=== PATIENT | male | born 1970 | race Caucasian/White ===

== ENCOUNTER → 2019-05-06 | Outpatient (REF) | payer MEDICAID ==
[2019-05-07 11:54] LABS: HEMATOCRIT 46.1 % (42.0-52.0); HEMOGLOBIN 15.4 g/dl (13.5-17.5); MEAN CORPUSCULAR HEMOGLOBIN 29.9 pg (27.0-33.0); MEAN CORPUSCULAR HGB CONC 33.4 g/dl (32.0-36.5); MEAN CORPUSCULAR VOLUME 89.5 fl (80.0-96.0); PLATELET COUNT, AUTOMATED 216 10^3/uL (150-450); RED BLOOD COUNT 5.15 10^6/uL (4.30-6.10); WHITE BLOOD COUNT 8.4 10^3/uL (4.0-10.0)
[2019-05-07 12:01] LABS: ALBUMIN 4.2 GM/DL (3.2-5.2); BILIRUBIN,DIRECT 0.1 MG/DL (0.0-0.2); BILIRUBIN,TOTAL 0.4 MG/DL (0.2-1.0); TOTAL PROTEIN 7.9 GM/DL (6.4-8.2)
== END ==
LOC: M SFHCCLAY 15:44
PROVIDERS: ATTEND Family Medicine
DX: R53.83 Other fatigue (principal); Z87.19 Personal history of other diseases of the digestive system

== ENCOUNTER → 2019-05-12 | Outpatient (CLI) | payer MEDICAID ==
--- NOTE | 2019-05-13 08:13 | REP ---
STATED REASON FOR EXAM: Hilar adenopathy, however, there are no priors for comparison and I am confused as to why the presumptive diagnosis would be in fact hilar adenopathy without prior imaging examinations to indicate as such. If hilar adenopathy is of clinical concern then a contrast enhanced chest CT is recommended regardless of the plain film findings. If there are priors then they will be needed for comparison. Today's plain film examination shows streaky right suprahilar densities, however, I have no priors for comparison. Lung escamilla are otherwise clear and the heart is not enlarged. The pleural angles are sharp. The osseous structures are within normal limits. IMPRESSION: CT scan of the chest with contrast is recommended since hilar adenopathy is of clinical concern. A plain film examination of the chest cannot rule out hilar or in fact mediastinal adenopathy, it can only rule it in if present. Electronically Signed by Zane Larios DO 05/13/2019 11:20 A
== END ==
LOC: M CLY 13:35
PROVIDERS: ATTEND Family Medicine
DX: R59.0 Localized enlarged lymph nodes (principal)

== ENCOUNTER → 2019-08-27 | Outpatient (REF) | payer MEDICAID, BC ==
[2019-08-27 13:01] LABS: BASO # 0.1 10^3/uL (0.0-0.2); BASO % 0.7 % (0.0-1.0); EOS # 0.2 10^3/uL (0.0-0.5); HEMATOCRIT 48.4 % (42.0-52.0); HEMOGLOBIN 15.8 g/dl (13.5-17.5); LYMPH # 1.7 10^3/uL (1.5-5.0); LYMPH % 18.6 % (24.0-44.0); MEAN CORPUSCULAR HEMOGLOBIN 30.7 pg (27.0-33.0); MEAN CORPUSCULAR HGB CONC 32.6 g/dl (32.0-36.5); MONO # 0.7 10^3/uL (0.0-0.8); MONO % 7.3 % (0.0-5.0); NEUTROPHILS # 6.5 10^3/uL (1.5-8.5); PLATELET COUNT, AUTOMATED 196 10^3/uL (150-450); RED BLOOD COUNT 5.15 10^6/uL (4.30-6.10); WHITE BLOOD COUNT 9.2 10^3/uL (4.0-10.0)
[2019-08-27 13:22] LABS: ALBUMIN 4.1 GM/DL (3.2-5.2); ALT/SGPT 40 U/L (12-78); BILIRUBIN,TOTAL 0.4 MG/DL (0.2-1.0); BLOOD UREA NITROGEN 13 MG/DL (7-18); CALCIUM LEVEL 9.4 MG/DL (8.5-10.1); CARBON DIOXIDE LEVEL 29 MEQ/L (21-32); CHLORIDE LEVEL 103 MEQ/L (98-107); CREATININE FOR GFR 1.12 MG/DL (0.70-1.30); GLOMERULAR FILTRATION RATE > 60.0 (>60); GLUCOSE, FASTING 88 MG/DL (70-100); POTASSIUM SERUM 4.7 MEQ/L (3.5-5.1); RHEUMATOID FACTOR QUANT < 10.0 IU/ML (<15.0); SODIUM LEVEL 139 MEQ/L (136-145); TOTAL 25(OH) VITAMIN D 67.9 NG/ML (30.0-100.0); TOTAL PROTEIN 7.9 GM/DL (6.4-8.2)
[2019-08-27 14:00] LABS: ERYTHROCYTE SEDIMENTATION RATE 126 mm/hr (0-15)
[2019-08-28 17:13] LABS: ANTINUCLEAR ANTIBODIES DIRECT Negative (Negative)
== END ==
LOC: M LABNEURO 10:42
PROVIDERS: ATTEND Psychiatry & Neurology Neurology
DX: R51 Headache (principal)

== ENCOUNTER → 2019-10-19 | Outpatient (REF) | payer BC, MEDICAID ==
[2019-10-19 18:12] LABS: BASO # 0.1 10^3/uL (0.0-0.2); BASO % 0.7 % (0.0-1.0); EOS # 0.2 10^3/uL (0.0-0.5); EOS % 2.4 % (0.0-3.0); LYMPH # 1.8 10^3/uL (1.5-5.0); LYMPH % 23.7 % (24.0-44.0); MEAN CORPUSCULAR HEMOGLOBIN 30.4 pg (27.0-33.0); MEAN CORPUSCULAR HGB CONC 32.7 g/dl (32.0-36.5); MONO # 0.6 10^3/uL (0.0-0.8); MONO % 8.3 % (0.0-5.0); NEUTROPHILS # 4.9 10^3/uL (1.5-8.5); NEUTROPHILS % 64.4 % (36.0-66.0); PLATELET COUNT, AUTOMATED 232 10^3/uL (150-450); RED BLOOD COUNT 5.27 10^6/uL (4.30-6.10); WHITE BLOOD COUNT 7.6 10^3/uL (4.0-10.0)
[2019-10-19 19:24] LABS: ERYTHROCYTE SEDIMENTATION RATE 3 mm/hr (0-15)
== END ==
LOC: M LAB REF 17:10 → M LABNEURO 17:10
PROVIDERS: ATTEND Physician Assistant Medical
DX: R51 Headache (principal)

== ENCOUNTER 2022-12-03 09:54 | Inpatient (IN) | payer MEDICAID, OTHER ==
[~2022-12-03] VITALS: Ht 167.6 cm; Wt 66.0 kg
[2022-12-03 10:56] LABS: BASO # 0.1 10^3/uL (0.0-0.2); BASO % 0.7 % (0.0-1.0); EOS # 0.2 10^3/uL (0.0-0.5); EOS % 1.9 % (0.0-3.0); HEMATOCRIT 50.2 % (42.0-52.0); HEMOGLOBIN 16.2 g/dl (13.5-17.5); LYMPH # 1.9 10^3/uL (1.5-5.0); LYMPH % 20.7 % (24.0-44.0); MEAN CORPUSCULAR HEMOGLOBIN 30.1 pg (27.0-33.0); MEAN CORPUSCULAR HGB CONC 32.3 g/dl (32.0-36.5); MEAN CORPUSCULAR VOLUME 93.1 fl (80.0-96.0); MONO # 0.8 10^3/uL (0.0-0.8); MONO % 8.3 % (2.0-8.0); NEUTROPHILS # 6.1 10^3/uL (1.5-8.5); NEUTROPHILS % 67.8 % (36.0-66.0); PLATELET COUNT, AUTOMATED 259 10^3/uL (150-450); RED BLOOD COUNT 5.39 10^6/uL (4.30-6.10)
[2022-12-03 11:31] LABS: BLOOD UREA NITROGEN 18 MG/DL (9-23); CALCIUM LEVEL 9.3 MG/DL (8.5-10.1); CARBON DIOXIDE LEVEL 25 MMOL/L (20-31); CHLORIDE LEVEL 106 MMOL/L (98-107); CREATININE FOR GFR 1.05 MG/DL (0.70-1.30); GLOMERULAR FILTRATION RATE > 60.0 (>56); GLUCOSE, FASTING 89 MG/DL (60-100); POTASSIUM SERUM 4.6 MMOL/L (3.5-5.1); SODIUM LEVEL 140 MMOL/L (136-145)
[2022-12-03 12:02] LABS: ETHYL ALCOHOL (ETHANOL) < 0.003 % (0.000-0.010)
[2022-12-03 12:04] LABS: ACETAMINOPHEN LEVEL < 2.0 UG/ML (10.0-20.0); SALICYLATE LEVEL < 3.0 MG/DL (<30)
[2022-12-03 12:07] LABS: ALBUMIN 4.2 G/DL (3.2-5.2); ALKALINE PHOSPHATASE 92 U/L (46-116); ALT/SGPT 29 U/L (7.0-40); AST/SGOT 23 U/L (<34); BILIRUBIN,DIRECT 0.1 MG/DL (<0.4); BILIRUBIN,TOTAL 0.5 MG/DL (0.3-1.2); THYROID STIMULATING HORMONE 1.004 uIU/ML (0.55-4.78); TOTAL PROTEIN 7.5 G/DL (5.7-8.2)
[2022-12-03 12:18] LABS: BARBITURATES URINE NEGATIVE (NEGATIVE); COCAINE METABOLITE URINE NEGATIVE (NEGATIVE); METHADONE URINE NEGATIVE (NEGATIVE); OPIATES URINE NEGATIVE (NEGATIVE); PHENCYCLIDINE URINE NEGATIVE (NEGATIVE)
[2022-12-03 12:21] LABS: AMPHETAMINES LEVEL URINE POSITIVE (NEGATIVE); BENZODIAZEPINES URINE POSITIVE (NEGATIVE); CANNABINOIDS URINE POSITIVE (NEGATIVE)
[2022-12-03] MEDS ORDERED: OLANZapine ORAL DISINTEGRATING TAB 5MG PO ONE (15:35)
[2022-12-03] MEDS ORDERED: DULO1CAP6 PO (16:55)
[2022-12-03] MEDS ORDERED: BUPR150T12 PO (16:55)
[2022-12-04] MEDS ORDERED: MOM 30ML SUSPENSION UDC PO PRN (12:25)
[2022-12-04] MEDS ORDERED: LORazepam 1 MG TAB PO PRN (12:25)
[2022-12-04] MEDS ORDERED: MAALOX 30 ML SUSP *UDC PO PRN (12:25)
[2022-12-04] MEDS: DULoxetine 30MG CAPSULE (CYMBALTA) PO SCH (12:40)
[2022-12-04] MEDS: buPROPion **XL** TABLET 150MG (WELLBUTRIN XL) PO SCH (12:40)
[2022-12-04] MEDS: NICOTINE 21MG/24HR 1 EA TRANSDERMAL TD SCH (14:11)
[2022-12-04 16:55] VITALS: BP 124/74
[2022-12-04] MEDS ORDERED: HOME MED LIST COMPLETE! XX SCH (20:55)
[2022-12-05 06:24] VITALS: BP 109/57
[2022-12-05] MEDS: NICOTINE 21MG/24HR 1 EA TRANSDERMAL TD SCH (09:00)
[2022-12-05] MEDS: DULoxetine 30MG CAPSULE (CYMBALTA) PO SCH (12:38)
[2022-12-05] MEDS: buPROPion **XL** TABLET 150MG (WELLBUTRIN XL) PO SCH (12:38)
[2022-12-05 17:39] VITALS: BP 144/79
[2022-12-05] MEDS ORDERED: OLANZapine 2.5MG TABLET PO SCH (21:00)
[2022-12-05] MEDS: traZODone 50 MG TAB PO PRN (21:28)
[2022-12-05] MEDS: IBUPROFEN 400MG TAB PO PRN (21:31)
[2022-12-06 06:33] VITALS: BP 115/65
[2022-12-06] MEDS: buPROPion **XL** TABLET 150MG (WELLBUTRIN XL) PO SCH (09:13)
[2022-12-06] MEDS: DULoxetine 30MG CAPSULE (CYMBALTA) PO SCH (09:14)
[2022-12-06] MEDS: OLANZapine 5 MG TAB PO SCH ×2 (11:23→21:53)
[2022-12-06 16:16] VITALS: BP 124/59
[2022-12-06] MEDS: traZODone 50 MG TAB PO PRN (21:53)
[2022-12-07 06:34] VITALS: BP 126/74
[2022-12-07] MEDS: OLANZapine 5 MG TAB PO SCH ×2 (07:53→21:01)
[2022-12-07] MEDS: buPROPion **XL** TABLET 150MG (WELLBUTRIN XL) PO SCH (07:53)
[2022-12-07] MEDS: DULoxetine 30MG CAPSULE (CYMBALTA) PO SCH (07:53)
[2022-12-07 16:14] VITALS: BP 122/68
[2022-12-07] MEDS: traZODone 50 MG TAB PO PRN (21:01)
[2022-12-08 06:30] VITALS: BP 131/69
[2022-12-08] MEDS: DULoxetine 30MG CAPSULE (CYMBALTA) PO SCH (07:31)
[2022-12-08] MEDS: OLANZapine 5 MG TAB PO SCH ×2 (07:31→21:20)
[2022-12-08] MEDS: buPROPion **XL** TABLET 150MG (WELLBUTRIN XL) PO SCH (07:31)
[2022-12-08 15:58] VITALS: BP 124/62
[2022-12-08] MEDS: traZODone 50 MG TAB PO PRN (21:20)
[2022-12-09] MEDS: IBUPROFEN 400MG TAB PO PRN ×2 (03:12→13:57)
[2022-12-09 06:54] VITALS: BP 142/88
[2022-12-09] MEDS: OLANZapine 5 MG TAB PO SCH (08:05)
[2022-12-09] MEDS: buPROPion **XL** TABLET 150MG (WELLBUTRIN XL) PO SCH (08:05)
[2022-12-09] MEDS: DULoxetine 30MG CAPSULE (CYMBALTA) PO SCH (08:05)
[2022-12-09 17:28] VITALS: BP 163/86
[2022-12-09] MEDS: OLANZapine 2.5MG TABLET PO SCH (21:01)
[2022-12-09] MEDS: traZODone 50 MG TAB PO PRN (21:01)
[2022-12-10 06:22] VITALS: BP 125/77
[2022-12-10] MEDS: buPROPion **XL** TABLET 150MG (WELLBUTRIN XL) PO SCH (08:52)
[2022-12-10] MEDS: OLANZapine 2.5MG TABLET PO SCH ×2 (08:52→20:35)
[2022-12-10] MEDS: DULoxetine 20MG CAP (CYMBALTA) PO SCH (08:52)
[2022-12-10 18:22] VITALS: BP 142/92
[2022-12-10] MEDS: traZODone 50 MG TAB PO PRN (20:35)
[2022-12-10] MEDS: IBUPROFEN 400MG TAB PO PRN (22:47)
[2022-12-11 06:45] VITALS: BP 128/90
[2022-12-11 07:24] LABS: CHOLESTEROL RISK RATIO 3.96 (<5); HDL CHOLESTEROL 48.9 MG/DL (>40); LDL CHOLESTEROL 90.1 MG/DL (<100)
[2022-12-11] MEDS: DULoxetine 20MG CAP (CYMBALTA) PO SCH (08:37)
[2022-12-11] MEDS: buPROPion **XL** TABLET 150MG (WELLBUTRIN XL) PO SCH (08:38)
[2022-12-11] MEDS: OLANZapine 2.5MG TABLET PO SCH (08:38)
[2022-12-11] MEDS: IBUPROFEN 400MG TAB PO PRN ×2 (12:04→18:47)
[2022-12-11 17:33] VITALS: BP 142/73
[2022-12-11] MEDS: traZODone 50 MG TAB PO PRN (20:22)
[2022-12-11] MEDS ORDERED: OLANZapine 10 MG TAB PO SCH (21:00)
[2022-12-12 06:44] VITALS: BP 115/62
[2022-12-12] MEDS: DULoxetine 20MG CAP (CYMBALTA) PO SCH (08:09)
[2022-12-12] MEDS: buPROPion **XL** TABLET 150MG (WELLBUTRIN XL) PO SCH (08:09)
[2022-12-12] MEDS ORDERED: OLAN20TA14 PO (09:42)
[2022-12-12] MEDS ORDERED: BUPR150T12 PO (09:42)
[2022-12-12] MEDS ORDERED: TRAZ-252 PO (09:42)
[2022-12-12] MEDS ORDERED: CYMB1CAP4 PO (09:42)
[2022-12-12] MEDS: IBUPROFEN 400MG TAB PO PRN (10:28)
== END 2022-12-12 13:50 | disposition home or self-care (01) | DRG 753 ==
LOC: M ED 09:54 → M ED INP 12-04 12:24 → M PSY 12-04 16:46
PROVIDERS: ADMIT Student in an Organized Health Care Education/Training Program; ATTEND Student in an Organized Health Care Education/Training Program
DX: F31.9 Bipolar disorder, unspecified (principal); F15.959 Other stimulant use, unspecified with stimulant-induced psychotic disorder, unspecified; F12.959 Cannabis use, unspecified with psychotic disorder, unspecified; Z71.51 Drug abuse counseling and surveillance of drug abuser; Z20.822 Contact with and (suspected) exposure to COVID-19

== ENCOUNTER → 2024-01-02 | Outpatient (REF) | payer OTHER ==
[~2024-01-02] MED LIST: BUPR150T12 PO; CYMB1CAP4 PO; DULO1CAP6 PO; OLAN20TA14 PO; TRAZ-252 PO
[2024-01-02 18:02] LABS: ALBUMIN 4.3 G/DL (3.2-5.2); ALKALINE PHOSPHATASE 83 U/L (46-116); ALT/SGPT 29 U/L (7.0-40); AST/SGOT 11 U/L (<34); BILIRUBIN,TOTAL 0.4 MG/DL (0.3-1.2); BLOOD UREA NITROGEN 20 MG/DL (9-23); CALCIUM LEVEL 9.2 MG/DL (8.5-10.1); CARBON DIOXIDE LEVEL 26 MMOL/L (20-31); CHLORIDE LEVEL 106 MMOL/L (98-107); CHOLESTEROL LEVEL 165 MG/DL (<200); CHOLESTEROL RISK RATIO 4.68 (<5); CREATININE FOR GFR 1.03 MG/DL (0.70-1.30); GLOMERULAR FILTRATION RATE > 60.0 (>56); GLUCOSE, FASTING 86 MG/DL (60-100); HDL CHOLESTEROL 35.2 MG/DL (>40); LDL CHOLESTEROL 98.2 MG/DL (<100); NON-HDL-C 129.8 MG/DL; POTASSIUM SERUM 4.3 MMOL/L (3.5-5.1); SODIUM LEVEL 138 MMOL/L (136-145); TOTAL PROTEIN 7.4 G/DL (5.7-8.2); TRIGLYCERIDES LEVEL 158 MG/DL (<150)
[2024-01-02 18:04] LABS: THYROID STIMULATING HORMONE 1.926 uIU/ML (0.55-4.78)
[2024-01-02 18:05] LABS: FREE T4 1.08 NG/DL (0.89-1.76)
== END ==
LOC: M SFHCCLAY 15:30
PROVIDERS: ATTEND Family Medicine
DX: R93.89 Abnormal findings on diagnostic imaging of other specified body structures (principal); H53.9 Unspecified visual disturbance

== ENCOUNTER → 2024-02-12 | Outpatient (CLI) | payer OTHER | LOC: M PLAIMG 15:39 | PROVIDERS: ATTEND Family Medicine | DX: R93.89 Abnormal findings on diagnostic imaging of other specified body structures (principal); I67.89 Other cerebrovascular disease ==

== ENCOUNTER → 2024-02-19 | Outpatient (CLI) | payer OTHER ==
[~2024-02-19] MED LIST changes: +PROHANCE 279.3MG/ML 15ML VIAL As Ordered ONE
== END ==
LOC: M RAD 16:32
PROVIDERS: ATTEND Family Medicine
DX: I67.89 Other cerebrovascular disease (principal)
CPT/HCPCS: 70553; A9576